=== PATIENT | male | born 1980 | race Native Hawaiian/Other Pacific Islander ===

== ENCOUNTER 2018-10-28 04:40 | Emergency (ER) | payer OTHER ==
--- NOTE | 2018-10-28 04:49 | ED Physician Documentation ---
PD HPI ABD PAIN - Stated complaint Stated Complaint: ABD/BACK PAIN - History obtained from History obtained from: Patient - History of Present Illness Timing - onset: How many hours ago (1.5) Timing - duration: Hours (1.5) Timing - details: Abrupt onset Pain level max: 10 Pain level now: 8 Quality: Sharp Location: LUQ, LLQ Radiation: Left flank Associated symptoms: Hematochezia (2 weeks ago he saw bright red blood on his stool about 3 times .). No: Fever, Nausea, Vomiting, Diarrhea, Constipation, Dysuria, Hematuria, Chest pain, Dizzy, Near syncope / syncope Similar symptoms before: Has not had sx before - Additional information Additional information: This is a 38-year-old man who presents with his complains that he was awakened an hour and a half prior to presentation with complaints of pain in his left abdomen with that was sharp and radiating to the left flank. Is a constant pain that was a 10 out of 10 it slightly improved now with a 7-8 out of 10. He has not taken any medications for it. He did urinate at home the urine was very dark but no jian blood in it. He was sweaty on the way here but denies fever. He has had no nausea vomiting or diarrhea. Approximately 2 weeks ago the patient noticed some bright red blood in his stools 3 times. Denied constipation and has not seen any further episodes of bloody stool. Is never had a colonoscopy. Denies history of kidney stones. The pain does not radiate down his leg. Patient is and is in the [place]. Review of Systems Constitutional: reports: Sweats. denies: Fever Eyes: denies: Decreased vision Cardiac: denies: Chest pain / pressure, Palpitations Respiratory: denies: Dyspnea, Cough GI: reports: Abdominal Pain. denies: Nausea, Vomiting, Diarrhea, Hematemesis : denies: Dysuria, Frequency, Hesitancy Skin: denies: Rash Musculoskeletal: reports: Back pain Endocrine: reports: Other (Not diabetic) PD PAST MEDICAL HISTORY - Present Medications Home Medications: Ambulatory Orders Medication Instructions Recorded Confirmed Hydrocodone/Acetaminophen 1 - 2 each PO Q6H PRN #14 tablet 10/28/18 [Hydrocodon-Acetaminophen 5-325] Ibuprofen [Motrin] 800 mg PO Q8H PRN #30 tablet 10/28/18 Tamsulosin [Flomax] 0.4 mg PO DAILY #10 capsule 10/28/18 - Allergies Allergies/Adverse Reactions: Allergies Allergy/AdvReac Type Severity Reaction Status Date / Time No Known Drug Allergies Allergy Verified 10/28/18 04:50 PD ED PE NORMAL - Vitals Vital signs reviewed: Yes - General General: Alert and oriented X 3, Other (Appears uncomfortable.) - HEENT HEENT: Atraumatic, PERRL - Neck Neck: Thyroid normal, No JVD - Cardiac Cardiac: RRR, No murmur - Respiratory Respiratory: No respiratory distress, Clear bilaterally - Abdomen Abdomen: Normal bowel sounds, Soft, Other (He has voluntary guarding with tenderness along the left abdomen.) - Back Back: Other (There is left costovertebral angle tenderness.) - Derm Derm: Normal color, Warm and dry, No rash - Extremities Extremities: No deformity, No edema - Neuro Neuro: Alert and oriented X 3, 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, No motor deficit, No sensory deficit, Normal speech Results - Vitals Vitals: Vital Signs - 24 hr 10/28/18 10/28/18 04:40 05:23 Temperature 36.3 C L Heart Rate 73 70 Respiratory 20 14 Rate Blood Pressure 147/97 H 125/85 H O2 Saturation 97 97 Oxygen O2 Source Room air - Labs Labs: Laboratory Tests 10/28/18 10/28/18 10/28/18 04:50 04:50 05:09 WBC 8.3 RBC 4.81 Hgb 14.6 Hct 43.7 MCV 90.9 MCH 30.4 MCHC 33.4 RDW 11.7 L Plt Count 366 MPV 9.5 Neut # (Auto) 3.8 Lymph # (Auto) 3.7 H [place] # (Auto) 0.6 Eos # (Auto) 0.2 Baso # (Auto) 0.1 Absolute Nucleated RBC 0.00 Nucleated RBC % 0.0 Sodium 142 Potassium 3.7 Chloride 105 Carbon Dioxide 24 Anion Gap 13.0 BUN 20 Creatinine 1.0 Estimated GFR (MDRD) 85 L Glucose 130 H Calcium 9.5 Total Bilirubin 1.2 H AST 35 ALT 67 H Alkaline Phosphatase 90 Total Protein 8.6 H Albumin 4.6 Globulin 4.0 Albumin/Globulin Ratio 1.1 Lipase 36 Urine Color YELLOW Urine Clarity HAZY Urine pH 5.5 Ur Specific [place] >=1.030 H Urine Protein 30 H Urine Glucose (UA) NEGATIVE Urine Ketones NEGATIVE Urine Occult Blood LARGE H Urine Nitrite NEGATIVE Urine Bilirubin NEGATIVE Urine Urobilinogen 0.2 (NORMAL) Ur Leukocyte Esterase TRACE H Urine RBC TNTC H Urine WBC 0-3 Ur Squamous Epith Cells NONE SEEN Urine Bacteria Rare Urine Mucus Few Strands Ur Microscopic Review INDICATED Urine Culture Comments INDICATED PD MEDICAL DECISION MAKING - ED course Complexity details: reviewed results, re-evaluated patient, d/w patient ED course: Patient was given a liter of fluids and 30 of Toradol IV. His pain was down to a 2 out of 10 on reevaluation. White blood cell count is normal. He has too numerous to count red blood cells in his urine specimen. Normal BUN and cre atinine. Noncontrast abdomen pelvis CT has been obtained and additional liter of saline has been ordered. We will strain all urine. 0620: CT shows 4mm stone in L mid-ureter. Patient is pain-free. He did strain his urine here has not passed the stone. We discussed kidney stones and treatment. We will discharge him with instructions to take ibuprofen for the pain. Also prescription for Flomax and a few hydrocodone tablets if needed the pain returns. He should make a follow-up appointment with his primary care provider. Return to the emergency department if he has increasing pain that is not controlled with the pain medicine, he is vomiting and cannot keep anything down, he has a fever or not urinating. Departure - Departure Disposition: 01 Home, Self Care Clinical Impression: Renal colic Condition: Good Instructions: ED Stone Renal W Colic Follow-Up: [facility] [Provider Group] Prescriptions: Hydrocodone/Acetaminophen [Hydrocodon-Acetaminophen 5-325] 1 - 2 each PO Q6H PRN #14 tablet PRN Reason: pain Ibuprofen [Motrin] 800 mg PO Q8H PRN #30 tablet PRN Reason: PAIN &/OR FEVER Tamsulosin [Flomax] 0.4 mg PO DAILY #10 capsule Comments: Be sure to drink plenty of water. Take Motrin every 8 hours with food for the pain. Use hydrocodone if needed for the pain but do not drive or operate machinery or take additional Tylenol if you are taking that medicine. Strain all your urine and save the stone if passed. Take the Flomax daily until the stone has passed. Schedule follow-up appointment on the [facility] for reevaluation especially if the stone has not passed in 2 weeks. Return to the emergency department if you have increasing pain that is not controlled with the pain medicine, you are vomiting and cannot keep anything down, you develop a fever or are unable to urinate.
[2018-10-28] MEDS ORDERED: SODIUM CHLORIDE 0.9% 1,000 ML IV ONE ×2 (04:55→05:50)
[2018-10-28] MEDS ORDERED: KETOROLAC 30 MG/ML VIAL IVP STA (04:57)
[2018-10-28 05:04] LABS: BASOPHILS # (AUTO) 0.1 10^3/uL (0.0-0.1); BASOPHILS % (AUTO) 0.6 %; EOSINOPHILS # (AUTO) 0.2 10^3/uL (0.0-0.7); HGB - HEMOGLOBIN 14.6 g/dL (14.0-18.0); LYMPHOCYTES # (AUTO) 3.7 10^3/uL (1.5-3.5); LYMPHOCYTES % (AUTO) 43.9 %; MEAN CORPUSCULAR HEMOGLOBIN 30.4 pg (27.0-31.0); MEAN CORPUSCULAR HGB CONC 33.4 g/dL (32.0-36.0); MEAN CORPUSCULAR VOLUME 90.9 fL (80.0-94.0); MEAN PLATELET VOLUME 9.5 fL (7.4-11.4); MONOCYTES # (AUTO) 0.6 10^3/uL (0.0-1.0); MONOCYTES % (AUTO) 7.5 %; NEUTROPHILS # (AUTO) 3.8 10^3/uL (1.5-6.6); NEUTROPHILS % (AUTO) 45.6 %; PLT - PLATELET COUNT 366 10^3/uL (130-450); RED BLOOD COUNT 4.81 10^6/uL (4.70-6.10); RED CELL DISTRIBUTION WIDTH 11.7 % (12.0-15.0); WHITE BLOOD COUNT 8.3 x10^3/uL (4.8-10.8)
[2018-10-28 05:13] LABS: ALBUMIN 4.6 g/dL (3.2-5.5); ALBUMIN/GLOBULIN RATIO 1.1 (1.0-2.2); BILIRUBIN,TOTAL 1.2 mg/dL (0.2-1.0); CALCIUM 9.5 mg/dL (8.5-10.3); TOTAL PROTEIN 8.6 g/dL (6.7-8.2)
[2018-10-28 05:15] LABS: BILIRUBIN,URINE NEGATIVE (NEGATIVE); GLUCOSE, URINE (UA) NEGATIVE (NEGATIVE); KETONES,URINE (UA) NEGATIVE (NEGATIVE); LEUKOCYTE ESTERASE, URINE TRACE (NEGATIVE); NITRITE,URINE NEGATIVE (NEGATIVE); OCCULT BLOOD,URINE LARGE (NEGATIVE); PH,URINE 5.5 PH (5.0-7.5); PROTEIN,URINE 30 mg/dL (NEGATIVE); UROBILINOGEN,URINE 0.2 (NORMAL) E.U./dL (NORMAL)
[2018-10-28 05:29] LABS: CLARITY,URINE HAZY (CLEAR)
[2018-10-28 05:38] LABS: BACTERIA,URINE Rare /HPF (None Seen); MUCUS,URINE Few Strands; RBC,URINE TNTC /HPF (0-5); SQUAMOUS EPITHELIAL CELL,UR NONE SEEN (<= Few)
--- NOTE | 2018-10-28 06:18 | CT Report ---
Reason: L flank pain; r/o kidney stone Procedure Date: 10/28/2018 Accession Number: [id number] / [id number] Procedure: CT - Abdomen/Pelvis WO CPT Code: FULL RESULT: EXAM: CT ABDOMEN AND PELVIS (CT KUB) EXAM DATE: 10/28/2018 06:05 AM. CLINICAL HISTORY: Left flank pain; rule out kidney stone. COMPARISONS: None. TECHNIQUE: Routine axial helical CT imaging was performed through the abdomen and pelvis without IV contrast. Reconstructions: Coronal and sagittal. In accordance with CT protocol optimization, one or more of the following dose reduction techniques were utilized for this exam: automated exposure control, adjustment of mA and/or KV based on patient size, or use of iterative reconstructive technique. FINDINGS: Lung Bases: Unremarkable with 2 mm right middle lobe scarlike nodular focus. Right Kidney/Ureter: No stones, hydronephrosis, or hydroureter. Left Kidney/Ureter: Nonobstructing 4 x 2 mm proximal to mid left ureteral stone. Otherwise grossly unremarkable. Other Abdominal Organs: Noncontrast images of the abdominal organs are grossly unremarkable with exception of fatty liver. Peritoneal Cavity: No free fluid, free air or jian adenopathy. No excessive stool burden. Bowel is grossly unremarkable. Pelvic Organs: No bladder stones or gross wall thickening. Noncontrast images of the visualized pelvic organs are unremarkable. Vasculature: Unremarkable. Other: None. IMPRESSION: 1. Nonobstructing 4 x 2 mm proximal to mid left ureteral stone. 2. Fatty liver. RADIA
[2018-10-28 06:53] VITALS: BP 127/77
== END 2018-10-28 06:53 | disposition home or self-care (01) ==
LOC: ED 04:40
DX: N20.0 Calculus of kidney (principal)
CPT/HCPCS: 36415; 74176; 80053; 81001; 81003; 83690; 85025; 87086; 96361; 96374; 99284